=== PATIENT | male | born 1985 | race Caucasian/White ===

== ENCOUNTER 2019-02-05 11:20 | Emergency (ER) | payer SELFPAY ==
[2019-02-05 11:33] VITALS: TEMP 98
[2019-02-05 11:36] VITALS: BMI 23.1
[2019-02-05] MEDS ORDERED: LIDOCAINE HCL 2% (20ML MULTI-DOSE VIAL) ONE (11:54)
[2019-02-05] MEDS ORDERED: SODIUM BICARBONATE 4.2% 5 MEQ/10 ML DISP.SYRIN IVPUSH ONE (11:54)
[2019-02-05] MEDS ORDERED: LIDOCAINE HCL 2% (50ML VIAL) INF ONE (12:22)
[2019-02-05] MEDS ORDERED: SODIUM BICARBONATE 8.4% 50 MEQ/50 ML VIAL NR ONE (12:22)
[2019-02-05] MEDS ORDERED: DIPHTH,PERTUSS(ACELL),TET 0.5 ML DISP.SYRIN IM ONE ×2 (12:23)
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
[2019-02-05] MEDS ORDERED: AMOX TR/POT CLAV 875MG/125MG TABLETS (FP) ONE (12:32)
[2019-02-05] MEDS ORDERED: AMOX TR/POT CLAV 875MG/125MG TABLETS (FP) PO ONE (12:34)
[2019-02-05 13:13] VITALS: BP 136/88; PULSE 100
== END 2019-02-05 12:43 | disposition home or self-care (01) ==
LOC: FER 11:20
PROC: 3E0234Z Introduction of Serum, Toxoid and Vaccine into Muscle, Percutaneous Approach (ICD-10-PCS; principal; 2019-02-05)
PROC: 0CQ1XZZ Repair Lower Lip, External Approach (ICD-10-PCS; 2019-02-05)
DX: S01.511A Laceration without foreign body of lip, initial encounter (principal); Y04.2XXA Assault by strike against or bumped into by another person, initial encounter; Y93.89 Activity, other specified; Y92.89 Other specified places as the place of occurrence of the external cause
CPT/HCPCS: 90715; 99281-25

== ENCOUNTER 2019-02-11 11:26 | Emergency (ER) | payer SELFPAY ==
[2019-02-11 11:30] VITALS: BP 126/78; PULSE 87; TEMP 97.7; BMI 23.7
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
== END 2019-02-11 12:05 | disposition home or self-care (01) ==
LOC: FER 11:26
DX: Z48.02 Encounter for removal of sutures (principal)
CPT/HCPCS: 99282-25

== ENCOUNTER 2020-02-01 15:53 | Emergency (ER) | payer SELFPAY ==
[2020-02-01 16:06] VITALS: BP 132/75; PULSE 84; TEMP 98; BMI 25.1
[2020-02-01] MEDS ORDERED: KETOROLAC TROMETHAMINE 30 MG/1 ML VIAL IVPUSH ONE (16:28)
[2020-02-01] MEDS ORDERED: KETOROLAC TROMETHAMINE 30 MG/1 ML VIAL ONE (16:33)
== END 2020-02-01 18:07 | disposition home or self-care (01) ==
LOC: FER 15:53
PROC: 3E0333Z Introduction of Anti-inflammatory into Peripheral Vein, Percutaneous Approach (ICD-10-PCS; principal; 2020-02-01)
DX: S42.024A Nondisplaced fracture of shaft of right clavicle, initial encounter for closed fracture (principal)
CPT/HCPCS: 73030-TC-RT-FY; 99284-25

== ENCOUNTER 2022-07-19 03:08 | Emergency (ER) | payer SELFPAY ==
[2022-07-19 03:14] VITALS: BP 140/96; PULSE 68; RESP 18; TEMP 97.9; BMI 24.3
[2022-07-19] MEDS ORDERED: IBUPROFEN 400 MG TABLET (FP) PO ONE ×2 (03:37→03:39)
== END 2022-07-19 03:50 | disposition home or self-care (01) ==
LOC: FER 03:08
DX: R07.81 Pleurodynia (principal); Y04.0XXA Assault by unarmed brawl or fight, initial encounter
CPT/HCPCS: 71046-TC-FY; 99283-25